=== PATIENT | male | born 1965 | race Caucasian/White ===

== ENCOUNTER 2021-09-13 06:53 | Emergency (ER) | payer OTHER ==
[~2021-09-13] VITALS: Ht 177.8 cm; Wt 79.0 kg
[2021-09-13 09:08] VITALS: BP 132/71
== END 2021-09-13 09:09 | disposition home or self-care (01) ==
LOC: ER 06:54
DX: S80.12XA Contusion of left lower leg, initial encounter (principal); M79.662 Pain in left lower leg; J45.909 Unspecified asthma, uncomplicated; F41.9 Anxiety disorder, unspecified; Z88.1 Allergy status to other antibiotic agents; Z88.8 Allergy status to other drugs, medicaments and biological substances; X58.XXXA Exposure to other specified factors, initial encounter; Y93.89 Activity, other specified; Y92.89 Other specified places as the place of occurrence of the external cause; Y99.8 Other external cause status
CPT/HCPCS: 93971; 99284